=== PATIENT | female | born 1960 ===

== ENCOUNTER 2023-07-13 18:22 | Inpatient (IN) | payer OTHER ==
[~2023-07-13] VITALS: Ht 154.9 cm; Wt 50.5 kg
[2023-07-13 19:48] LABS: Basophils # (auto) 0 10 ^3/uL (0-0.2); Eosinophils # (auto) 0 10 ^3/uL (0-0.8); Lymphocytes # (auto) 0.3 10 ^3/uL (0.4-5.4); Monocytes # (auto) 0.2 10 ^3/uL (0-1.3); White Blood Cell 2.6 10^3/uL (4.4-10.8)
[2023-07-13 19:50] LABS: Basophils % (auto) 0.2 % (0.0-2.0); Eosinophils % (auto) 0.1 % (0.0-7.0); Hematocrit 39.9 % (36.0-46.0); Hemoglobin 12.9 g/dL (12.2-16.2); Lymphocytes % (auto) 12.7 % (10.0-50.0); Mean Corpuscular Hemoglobin 28.4 pg (28.0-32.0); Mean Corpuscular Hgb Conc. 32.4 g/dL (32.0-36.0); Mean Corpuscular Volume 87.9 fL (80.0-100.0); Monocytes % (auto) 7.4 % (0.0-12.0); Neutrophils # (auto) 2.1 10 ^3/uL (1.6-8.6); Neutrophils % (auto) 79.6 % (37.0-80.0); Nucleated Red Blood Cells % 0.2 %; Red Blood Cells 4.54 10^6/uL (4.0-5.20); Red Cell Distribution Width 16.8 % (11.8-14.3)
[2023-07-13 19:54] VITALS: PULSE 113; RESP 20; O2SAT 94
[2023-07-13 20:12] LABS: Alkaline Phosphatase 70 U/L (46-116); Anion Gap 10 (5-15); Aspartate Aminotransferase 15 U/L (13-40); Calcium 8.8 mg/dL (8.7-10.4); Carbon Dioxide 21 mmol/L (20-30); Chloride 107 mmol/L (98-107); Glucose 91 mg/dL (74-106); Platelet Estimate Decreased; Potassium 2.9 mmol/L (3.5-5.1); Sodium 138 mmol/L (136-145)
[2023-07-13] MEDS: ACETAMINOPHEN 500 MG TAB PO ONE (20:12)
[2023-07-13 20:13] LABS: Alanine Aminotransferase 9 U/L (7-40); Albumin 4.2 g/dL (3.2-4.8); BUN/Creatinine Ratio 8.6 (10.0-20.0); Bilirubin, Total 0.6 mg/dL (0.2-1.0); Blood Urea Nitrogen < 5 mg/dL (9-23); Total Protein 6.9 g/dL (5.7-8.2)
[2023-07-13] MEDS: cefTRIAXone 1GM/50ML D5W 50 ML IV ONE (20:13)
[2023-07-13] MEDS: AZITHROMYCIN 250 MG TAB PO ONE (20:13)
[2023-07-13 21:35] LABS: COVID19 ANTIGEN SOFIA FIA NEGATIVE (NEGATIVE); Rapid Influenza A Negative (Negative); Rapid Influenza B Negative (Negative)
[2023-07-13 21:36] LABS: Erythrocyte Sedimentation Rate 12 mm/hr (0-20)
[2023-07-13] MEDS: POTASSIUM CHL 20 Meq TABLET PO ONE (22:31)
[2023-07-14] MEDS: NOREPINEPHRINE 8 MG/250ML KIT 250 ML IV SCH (01:00)
[2023-07-14] MEDS: NOREPINEPHRINE 8 MG/250ML KIT 250 ML IV ONE (01:18)
[2023-07-14] MEDS ORDERED: MORPHINE SULFATE INJ 2 MG/ml SYRG IV PRN (04:30)
[2023-07-14] MEDS ORDERED: ONDANSETRON HCL 4 MG/2 ML VIAL IV PRN (04:30)
[2023-07-14] MEDS ORDERED: NITROGLYCERIN 0.4 MG SL TAB SL PRN (04:30)
[2023-07-14] MEDS: ACETAMINOPHEN 325 MG TAB PO PRN (07:10)
[2023-07-14 07:50] VITALS: BP 113/74; PULSE 107; RESP 24; O2SAT 94
[2023-07-14 08:00] VITALS: PULSE 86
[2023-07-14 08:10] VITALS: TEMP 99.3
[2023-07-14] MEDS: SILDENAFIL CITRATE 20 MG TAB PO SCH (08:38)
[2023-07-14] MEDS: DIGOXIN 0.125 MG TAB PO SCH (10:00)
[2023-07-14] MEDS: FUROSEMIDE 20 MG TAB PO SCH (10:00)
[2023-07-14] MEDS: buPROPion HCL 100 MG TAB PO SCH (10:00)
[2023-07-14] MEDS ORDERED: cefTRIAXone 1GM/50ML D5W 50 ML IV SCH (21:00)
[2023-07-14] MEDS ORDERED: AZITHROMYCIN 500MG/ 250ML 250 ML IV SCH (22:00)
== END 2023-07-14 10:36 | disposition left against medical advice (07) | DRG 871 ==
LOC: ER 18:22 → EDBD 18:22 → TELE 07-14 04:26
PROVIDERS: ADMIT Nurse Practitioner; ATTEND Internal Medicine
DX: A41.9 Sepsis, unspecified organism (principal); I50.41 Acute combined systolic (congestive) and diastolic (congestive) heart failure; J96.20 Acute and chronic respiratory failure, unspecified whether with hypoxia or hypercapnia; J15.69 Pneumonia due to other Gram-negative bacteria; J15.9 Unspecified bacterial pneumonia; D69.6 Thrombocytopenia, unspecified; I48.91 Unspecified atrial fibrillation; I27.20 Pulmonary hypertension, unspecified; Z20.822 Contact with and (suspected) exposure to COVID-19; E87.6 Hypokalemia
CPT/HCPCS: 36415; 71045; 80053; 83605; 83880; 84484; 85025; 85652; 87040; 87426; 87804; 93005; 96365; 96367; 99291; G0378